=== PATIENT | male | born 1985 | race Caucasian/White ===

== ENCOUNTER → 2017-06-26 | Outpatient (CLI) | payer BC | LOC: LAB 07:54 | DX: Z30.2 Encounter for sterilization (principal) ==

== ENCOUNTER → 2017-07-26 | Outpatient (CLI) | payer BC | LOC: LAB 07:10 | DX: Z30.2 Encounter for sterilization (principal); Z98.52 Vasectomy status ==

== ENCOUNTER → 2017-11-20 | Outpatient (CLI) | payer BC | LOC: LAB 07:07 | DX: Z30.2 Encounter for sterilization (principal); Z98.52 Vasectomy status ==

== ENCOUNTER 2020-10-15 19:26 | Emergency (ER) | payer BC ==
[~2020-10-15] VITALS: Ht 193 cm; Wt 120.5 kg
[2020-10-15] MEDS ORDERED: LEXAPRO20 M1 PO (19:38)
[2020-10-15] MEDS ORDERED: ADULT ASPIRIN R81 MG PO (19:38)
[2020-10-15] MEDS ORDERED: NORCO 325 MG-51 TA1 PO (21:32)
[2020-10-15] MEDS ORDERED: CEPHALEXIN500 M1 PO (21:32)
[2020-10-15 21:40] VITALS: BP 125/84
== END 2020-10-15 21:40 | disposition home or self-care (01) ==
LOC: ED 19:26
DX: S71.112A Laceration without foreign body, left thigh, initial encounter (principal); W55.22XA Struck by cow, initial encounter
CPT/HCPCS: 90715; J1885